=== PATIENT | male | born 1990 | race Caucasian/White ===

== ENCOUNTER 2017-04-27 16:31 | Emergency (ER) | payer MEDICAID ==
[~2017-04-27] VITALS: Ht 185.4 cm; Wt 131.5 kg
[2017-04-27 16:36] VITALS: BP 155/94; PULSE 86; RESP 16; TEMP 97.1; O2SAT 96
--- NOTE | 2017-04-27 17:35 | NUR ---
Called for pt. Unable to locate pt.
--- NOTE | 2017-04-27 18:05 | NUR ---
Called for pt. Unable to locate pt.
--- NOTE | 2017-04-27 18:36 | NUR ---
Called pt, unable to locate. Patient presumed to have LWBS.
== END 2017-04-27 18:36 | disposition left against medical advice (07) ==
LOC: SED 16:31
DX: R07.89 Other chest pain (principal); Z53.21 Procedure and treatment not carried out due to patient leaving prior to being seen by health care provider
CPT/HCPCS: 93005; 99281